=== PATIENT | male | born 1985 | race Caucasian/White ===

== ENCOUNTER 2018-07-12 10:21 | Emergency (ER) | payer SELFPAY ==
[~2018-07-12] VITALS: Ht 180.3 cm; Wt 97.0 kg
[2018-07-12 10:50] VITALS: BP 117/77
[2018-07-12 11:58] LABS: BASOPHILS % 0.8 % (0.0-2.0); EOSINOPHILS % 6.8 % (0.0-5.0); HEMOGLOBIN. 14.5 g/dL (14.0-18.0); LYMPHOCYTES % 20.5 % (20.0-50.0); MEAN CORPUSCULAR HEMOGLOBIN 30.8 pg (28.0-32.0); MEAN CORPUSCULAR VOLUME 91.5 fL (80.0-94.0); MEAN PLATELET VOLUME 7.6 fl (7.4-10.4); MONOCYTES % 6.8 % (2.0-8.0); NEUTROPHILS % 65.1 % (40.0-76.0); PLATELET 243 x1000/uL (130-400); RED CELL DISTRIBUTION WIDTH 13.2 % (11.6-14.6)
[2018-07-12 12:05] LABS: CHLORIDE 109 mEq/L (98-107)
[2018-07-12 12:08] LABS: ETHANOL BLOOD < 10 mg/dL
== END 2018-07-12 12:32 | disposition left against medical advice (07) ==
LOC: ER 10:28
DX: R07.89 Other chest pain (principal); F14.10 Cocaine abuse, uncomplicated
CPT/HCPCS: 36415; 71045; 80048; 80307; 80320; 80329; 84484; 93005; 99284; G0480

== ENCOUNTER 2019-04-21 04:02 | Emergency (ER) | payer SELFPAY ==
[~2019-04-21] VITALS: Ht 182.9 cm; Wt 113.0 kg
[2019-04-21 11:11] LABS: BASOPHILS % 0.4 % (0.0-2.0); EOSINOPHILS % 1.2 % (0.0-5.0); HEMATOCRIT. 43.8 % (42.0-52.0); HEMOGLOBIN. 14.6 g/dL (14.0-18.0); LYMPHOCYTES % 10.6 % (20.0-50.0); MEAN CORPUSCULAR HEMOGLOBIN 30.6 pg (28.0-32.0); MEAN CORPUSCULAR VOLUME 91.9 fL (80.0-94.0); MEAN PLATELET VOLUME 7.9 fl (7.4-10.4); NEUTROPHILS % 79.8 % (40.0-76.0); PLATELET 284 x1000/uL (130-400); RED BLOOD CELL COUNT 4.77 mill/uL (4.7-6.1); RED CELL DISTRIBUTION WIDTH 14.4 % (11.6-14.6)
[2019-04-21 11:18] LABS: CHLORIDE 108 mEq/L (98-107)
[2019-04-21 11:21] LABS: ETHANOL BLOOD < 10 mg/dL
[2019-04-21 14:07] VITALS: BP 127/50
== END 2019-04-21 14:27 | disposition home or self-care (01) ==
LOC: ER 04:02
DX: L01.00 Impetigo, unspecified (principal); L53.9 Erythematous condition, unspecified; R21 Rash and other nonspecific skin eruption; R20.2 Paresthesia of skin
CPT/HCPCS: 36415; 72100; 80048; 80320; 85025; 99284; G0480

== ENCOUNTER 2020-07-29 19:15 | Emergency (ER) | payer OTHER ==
[~2020-07-29] VITALS: Ht 185.4 cm; Wt 100.0 kg
[2020-07-29 19:19] VITALS: BP 144/66
== END 2020-07-29 19:52 ==
LOC: ER 19:15
DX: S00.81XA Abrasion of other part of head, initial encounter (principal); W22.8XXA Striking against or struck by other objects, initial encounter; Y35.893A Legal intervention involving other specified means, suspect injured, initial encounter; Y93.89 Activity, other specified; Y92.89 Other specified places as the place of occurrence of the external cause
CPT/HCPCS: 99283

== ENCOUNTER 2020-09-24 09:37 | Emergency (ER) | payer MEDICAID, OTHER ==
[~2020-09-24] VITALS: Ht 177.8 cm; Wt 84.0 kg
[2020-09-24] MEDS ORDERED: LORAZEPAM 2MG/ML CPJ IM STA (10:18)
[2020-09-24] MEDS ORDERED: HALOPERIDOL LACTATE 5MG/ML VIAL IM STA (10:18)
[2020-09-24] MEDS ORDERED: DIPHENHYDRAMINE 50MG/ML VIAL IM STA (10:18)
[2020-09-24] MEDS ORDERED: SODIUM CHLORIDE 0.9% 1,000 ML IV ONE (10:30)
[2020-09-24 11:14] LABS: BASOPHILS % 0.6 % (0.0-2.0); EOSINOPHILS % 1.8 % (0.0-5.0); HEMATOCRIT. 43.4 % (42.0-52.0); HEMOGLOBIN. 14.8 g/dL (14.0-18.0); LYMPHOCYTES % 15.4 % (20.0-50.0); MEAN CORPUSCULAR HEMOGLOBIN 31.3 pg (28.0-32.0); MEAN CORPUSCULAR VOLUME 91.9 fL (80.0-94.0); MEAN PLATELET VOLUME 7.5 fl (7.4-10.4); NEUTROPHILS % 75.2 % (40.0-76.0); PLATELET 258 x1000/uL (130-400); RED BLOOD CELL COUNT 4.73 mill/uL (4.7-6.1); RED CELL DISTRIBUTION WIDTH 13.4 % (11.6-14.6)
[2020-09-24 11:17] LABS: CHLORIDE 110 mEq/L (98-107)
[2020-09-24 11:20] LABS: CLARITY URINE CLEAR (CLEAR); COLOR URINE DARK YELLOW (YELLOW); KETONES URINE 1+ (NEGATIVE); LEUKOCYTE ESTERASE URINE TRACE (NEGATIVE); NITRITE URINE NEGATIVE (NEGATIVE); OCCULT BLOOD URINE NEGATIVE (NEGATIVE); PH URINE 6.5 (4.5-8.0); PROTEIN URINE 2+ (NEGATIVE); SPECIFIC GRAVITY URINE 1.034 (1.005-1.030)
[2020-09-24 11:22] LABS: ETHANOL BLOOD < 10 mg/dL
[2020-09-24 11:39] LABS: *AMPHETAMINES SCREEN URINE PRESUMTIVE POSITIVE (NEGATIVE); *BARBITURATES SCREEN URINE NEGATIVE (NEGATIVE); *BENZODIAZEPINES SCREEN URINE PRESUMTIVE POSITIVE (NEGATIVE); *COCAINE SCREEN URINE PRESUMTIVE POSITIVE (NEGATIVE); CANNABINOID URINE SCREEN NEGATIVE (NEGATIVE); METHADONE URINE SCREEN NEGATIVE (NEGATIVE); OPIATES URINE SCREEN NEGATIVE (NEGATIVE)
[2020-09-24 11:41] LABS: PHENCYCLIDINE URINE SCREEN NEGATIVE (NEGATIVE)
[2020-09-24 12:45] VITALS: BP 119/77
== END 2020-09-24 14:50 | disposition home or self-care (01) ==
LOC: ER 09:37
DX: F60.3 Borderline personality disorder (principal); Z78.1 Physical restraint status; F14.10 Cocaine abuse, uncomplicated; F15.10 Other stimulant abuse, uncomplicated; F13.10 Sedative, hypnotic or anxiolytic abuse, uncomplicated
CPT/HCPCS: 36415; 80053; 80305; 80320; 81003; 82140; 85025; 99283; J7030; G0480

== ENCOUNTER 2021-01-28 10:06 | Emergency (ER) | payer SELFPAY ==
[~2021-01-28] VITALS: Ht 180.3 cm; Wt 90.0 kg
[2021-01-28] MEDS ORDERED: SODIUM CHLORIDE 0.9% 1,000 ML IV ONE (10:15)
[2021-01-28] MEDS ORDERED: BACITRACIN ZINC OINT UDPKT TOP ONE (10:15)
[2021-01-28] MEDS ORDERED: TETANUS, DIPHTHERIA, PERTUSSIS VAC/PF 0.5ML (>10YR OLD) IM ONE (10:15)
[2021-01-28 11:00] LABS: BASOPHILS % 0.7 % (0.0-2.0); EOSINOPHILS % 0.6 % (0.0-5.0); HEMATOCRIT. 42.4 % (42.0-52.0); HEMOGLOBIN. 14.5 g/dL (14.0-18.0); LYMPHOCYTES % 14.2 % (20.0-50.0); MEAN CORPUSCULAR HEMOGLOBIN 31.8 pg (28.0-32.0); MEAN CORPUSCULAR VOLUME 92.9 fL (80.0-94.0); MEAN PLATELET VOLUME 7.3 fl (7.4-10.4); MONOCYTES % 5.3 % (2.0-8.0); NEUTROPHILS % 79.2 % (40.0-76.0); PLATELET 277 x1000/uL (130-400); RED BLOOD CELL COUNT 4.56 mill/uL (4.7-6.1); RED CELL DISTRIBUTION WIDTH 13.3 % (11.6-14.6)
[2021-01-28 11:07] LABS: CHLORIDE 110 mEq/L (98-107)
[2021-01-28 11:11] LABS: ETHANOL BLOOD < 10 mg/dL
[2021-01-28 11:37] LABS: CLARITY URINE CLOUDY (CLEAR); COLOR URINE DARK YELLOW (YELLOW); KETONES URINE TRACE (NEGATIVE); LEUKOCYTE ESTERASE URINE TRACE (NEGATIVE); NITRITE URINE NEGATIVE (NEGATIVE); OCCULT BLOOD URINE 3+ (NEGATIVE); PROTEIN URINE 3+ (NEGATIVE); SPECIFIC GRAVITY URINE 1.025 (1.005-1.030)
[2021-01-28 11:53] LABS: *AMPHETAMINES SCREEN URINE PRESUMTIVE POSITIVE (NEGATIVE); *BARBITURATES SCREEN URINE NEGATIVE (NEGATIVE); *BENZODIAZEPINES SCREEN URINE PRESUMTIVE POSITIVE (NEGATIVE); *COCAINE SCREEN URINE PRESUMTIVE POSITIVE (NEGATIVE)
[2021-01-28 11:54] LABS: CANNABINOID URINE SCREEN NEGATIVE (NEGATIVE); METHADONE URINE SCREEN NEGATIVE (NEGATIVE); OPIATES URINE SCREEN NEGATIVE (NEGATIVE); PHENCYCLIDINE URINE SCREEN NEGATIVE (NEGATIVE)
[2021-01-28 13:49] VITALS: BP 133/78
== END 2021-01-28 14:00 ==
LOC: ER 10:06
DX: F31.4 Bipolar disorder, current episode depressed, severe, without psychotic features (principal); F43.12 Post-traumatic stress disorder, chronic; S01.81XA Laceration without foreign body of other part of head, initial encounter; R45.851 Suicidal ideations; R45.1 Restlessness and agitation; W22.8XXA Striking against or struck by other objects, initial encounter; Y93.89 Activity, other specified; Y92.488 Other paved roadways as the place of occurrence of the external cause; Z78.1 Physical restraint status; Z20.822 Contact with and (suspected) exposure to COVID-19; F14.10 Cocaine abuse, uncomplicated; F15.10 Other stimulant abuse, uncomplicated; F13.10 Sedative, hypnotic or anxiolytic abuse, uncomplicated; Z91.14 Patient's other noncompliance with medication regimen
CPT/HCPCS: 36415; 70450; 80053; 80305; 80320; 81003; 85025; 96360; 99284; C9803; J7030; U0003; U0005; Z7610; G0480